=== PATIENT | male | born 1930 | race Caucasian/White ===

== ENCOUNTER → 2017-02-16 | Outpatient (CLI) | payer MEDICARE, BC ==
[~2017-02-16] MED LIST: ASPIRIN81 M2 PO; BAYER ASPIRIN325 M1 PO; FERROUS GLUCON324 M1 PO; HYDROCHLOROTH12.5 M1 PO; LIPITOR PO; MICROZIDE12.5 M1 PO; PATIENT'S PHARMACY; PRINIVIL40 MG PO; VITAMIN B122500 MCG
[2017-02-16 12:47] LABS: HEMATOCRIT 39.4 % (38.0-50.0); MEAN CORPUSCULAR HEMOGLOBIN 30.3 PG (28-34); MEAN CORPUSCULAR HGB CONC 32.9 g/dL (30-36); MEAN PLATELET VOLUME 6.9 FL (6.5-11.5); RED BLOOD COUNT 4.28 X10e (3.90-5.60); RED CELL DISTRIBUTION WIDTH 13.8 % (11.0-15.5); WHITE BLOOD COUNT 7.6 X10e3 (4.0-10.5)
== END | disposition home or self-care (01) ==
LOC: CLAB 12:00
PROVIDERS: Physician Assistant
DX: L08.9 Local infection of the skin and subcutaneous tissue, unspecified (principal)
CPT/HCPCS: 36415; 85027; 85652; 86140; 87070; 87077; 87088; 87186; 87205

== ENCOUNTER → 2017-03-01 | Outpatient (CLI) | payer MEDICARE, BC ==
--- NOTE | ~2017-03-01 | CT107 ---
[facility] A Service of [facility] & [facility] RADIOLOGY TEXT RESULTS PATIENT: ERNESTINE BECERRIL LOCATION: [facility] : 32 UNIT #: [id number] AGE: [address]: Choco Mcfarlane MD SEX: M ORDER DR: [id number] [facility] [address] [facility]. [place], [place] [address] [id number] O MR#: [id number] Acc #: [id number] NAME: ERNESTINE BECERRIL : 1930 SEX: M STUDY DATE/TIME: 03/01/2017 15:28 UNIT: [facility] ROOM: STUDY DESCRIPTION: CT Pelvis Wo Cont Attending Physician: Choco Mcfarlane M.D. Referring Physician: Choco Mcfarlane M.D. Ordering Physician: Choco Mcfarlane M.D. Primary Care Physician: Primary Care Physician No MEDICAL IMAGING REPORT This report is preliminary unless electronic signature is present EXAM CT pelvis and hips without contrast - with metal reduction technique and coronal and sagittal reconstructions - attention left hip, 03/01/2017 HISTORY Order states left hip infection, evaluate fracture healing. No contrast. History sheet states left hip pain. Evaluate for fracture. Pain in left hip ever since surgery on 06/09/2016. Left hip injury 06/09/2016 with surgery on 06/10/2016. COMPARISON Left hip radiographs 06/09/2016 and 06/10/2016. FINDINGS Intramedullary nailing of a left intertrochanteric femur fracture has been performed. No hardware fracture is noted. The intertrochanteric fracture line is largely ununited with sclerotic borders. There is minimal bridging ossification of the greater trochanteric fracture fragment that is superiorly located. There is incomplete hypertrophic malunion of the lesser trochanteric fragment. The left hip demonstrates no sizeable effusion or evidence of femoral head avascular necrosis. In the lateral left hip subcutaneous space in the region of the apparent surgical scar is a 2.6 x 2.4 x 2.1 cm (craniocaudal x transverse x AP) centimeter rounded fluid collection which could reflect a sterile seroma or an infected abscess. There is slight indentation of the skin at the presumed surgical scar but no obvious open wound. There is no deep space fluid collection to suggest a deep abscess. The remainder of the bony pelvis shows no fracture or osseous lesion. [facility]. [facility] A Service of [facility] & [facility] RADIOLOGY TEXT RESULTS PATIENT: ERNESTINE BECERRIL LOCATION: [facility] : 32 UNIT #: [id number] AGE: [address]: Choco Mcfarlane MD SEX: M ORDER DR: There is atherosclerotic vascular calcification. Prostate is enlarged. There is no adenopathy. Diverticulosis is present. There is an incompletely included low density lower pole renal lesion measuring 2.4 x 2.1 cm (AP x transverse) craniocaudal extent is not included. 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 Nevertheless, noncontrast CT of the abdomen is recommended for full characterization. There is advanced lower lumbar degenerative disc disease at L5-S1 and L4-5. The right hip is unremarkable. IMPRESSION 1. Minimal bridging or healing of the intertrochanteric comminuted left femur fracture with the main intertrochanteric fracture line essentially non-healed with sclerotic margins. 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 2. No left hip sizable effusion or avascular necrosis. There is no definite evidence of septic arthritis or osteomyelitis. 3. 2.6 x 2.4 x 2.1 cm subcutaneous rounded fluid collection in the lateral subcutaneous space of the left hip deep to the apparent incision site. This could reflect an infected abscess or a seroma. 4. Prominent prostate enlargement. 5. Diverticulosis. 6. Vascular calcification. 7. Incompletely included left lower pole renal lesion suggestive of an angiomyolipoma. Noncontrast CT of the abdomen is recommended for further characterization. 8. The exam was made available for interpretation on 03/10/2017. See documentation on properties page. STAT * RESULT Dictated by... Mikala Jones M.D. THIS IS AN ELECTRONICALLY VERIFIED REPORT Mikala Jones M.D. at 03/10/2017 12:29 PM DORCAS/diaz TD: 03/10/2017 09:58 JOB #: [id number] [facility]. [facility] A Service of [facility] & [facility] RADIOLOGY TEXT RESULTS PATIENT: ERNESTINE BECERRIL LOCATION: [facility] : 32 UNIT #: [id number] AGE: [address]: Choco Mcfarlane MD SEX: M ORDER DR: MEDICAL IMAGING REPORT Page 1 of 1 COPY
== END | disposition home or self-care (01) ==
LOC: CCAT 15:00
DX: M00.9 Pyogenic arthritis, unspecified (principal); S72.112K Displaced fracture of greater trochanter of left femur, subsequent encounter for closed fracture with nonunion; S72.122 Displaced fracture of lesser trochanter of left femur; S72.142K Displaced intertrochanteric fracture of left femur, subsequent encounter for closed fracture with nonunion; N40.0 Benign prostatic hyperplasia without lower urinary tract symptoms; K57.90 Diverticulosis of intestine, part unspecified, without perforation or abscess without bleeding; I99.8 Other disorder of circulatory system; N28.89 Other specified disorders of kidney and ureter
CPT/HCPCS: 72192

== ENCOUNTER 2017-03-16 13:42 | Inpatient (IN) | payer MEDICARE, BC ==
--- NOTE | ~2017-03-16 | HP ---
Unit #: [id number] #: [id number] Patient: ERNESTINE BECERRIL [id number] [address] [address] [id number] I MR#: [id number] NAME: ERNESTINE BECERRIL ROOM: 242 Age: 86 Sex: M Admission Date: 03/16/2017 : 1930 Attending Physician: Magdaleno Samson M.D. Primary Care Physician: Maris Mohan A.P.R.N. HISTORY AND PHYSICAL HISTORY OF PRESENT ILLNESS Mr. Becerril is an 86-year-old male who presents today with a nonunion left intertrochanteric hip fracture with drainage. The patient was seen at our office as an outpatient for a wound check and x-rays. He was direct admitted for left hip infection. The patient has a history of a left hip gamma nail done by Dr. Skelton on 06/10/2016. He had some increased drainage and then underwent an I and D about a week later. The patient reports drainage off and on from that incision site. He reports pain with weightbearing. He denies any recent injury that he can recall. No numbness or instability. PAST MEDICAL HISTORY 1. Left hip fracture. 2. Chronic kidney disease. 3. Restless leg syndrome. 4. DJD. 5. Staph infection. MEDICATIONS Medications include an iron tablet. ALLERGIES No known drug allergies. SURGICAL HISTORY 1. Left hip gamma nail. 2. Left hip gamma nail I and D. SOCIAL HISTORY Patient lives at home and alone. He is a former smoker. He occasionally drinks alcohol. FAMILY HISTORY Family history is insignificant. REVIEW OF SYSTEMS Ten organ systems reviewed. The patient denies any blurry vision, congestion, shortness of breath, chest pain, abdominal pain, urinary incontinence, numbness, tingling, skin ulcers or lesions, anxiety, depression. Positive for joint pain. PHYSICAL EXAMINATION GENERAL: No acute distress. Alert and oriented x3. VITALS: Temp 98.2, pulse 76, respirations 18, blood pressure 143/90. Unit #: [id number] #: [id number] Patient: ERNESTINE BECERRIL HEENT: PERRLA. Nonicteric sclera. THORAX: Trachea midline. No thyromegaly. CARDIAC: S1, S2. No extra sounds. No murmurs. LUNGS: Clear to auscultation. No rales or rhonchi. ABDOMEN: Nondistended, nontender. Positive bowel sounds. : Deferred. MUSCULOSKELETAL: Positive serous drainage coming from the incision in the left hip. Range of motion is limited in flexion. Tenderness to palpation. NEUROLOGIC: Cranial nerves II-XII intact. SKIN: Cool and dry. PSYCHIATRIC: Good insight. Good judgment. Mood and affect are pleasant. DIAGNOSTIC STUDIES LABS ON ADMISSION: White count 8.7, hemoglobin 13.4, hematocrit 40.4, platelets 274. Glucose 112, BUN 32, creatinine 1.4, sodium 138, potassium 3.9, chloride 101, bicarb 30. CRP is 5.6, and sed rate is 52. X-RAYS: Two views of the left hip ordered and reviewed and shows a nonunion left intertrochanteric hip fracture. ASSESSMENT 1. Left intertrochanteric nonunion hip fracture. 2. Left hip infection. PLAN I have discussed treatment options with the patient and have recommended a left hip IM nail removal with antibiotic spacer placed by Dr. Samson. The risks and benefits of the procedure were explained, as well as the description of the procedure in its entirety, along with any complications. The patient has decided to proceed. Will go ahead and get this scheduled. Will consult ID and HIPS for infection and medical management and follow him throughout his hospital course. Dictated by Xavier Michelle for Carin Silva/monika TD: 03/17/2017 13:31 JOB #: [id number] HISTORY AND PHYSICAL Page 1 of 1 X Gissell Vitale HISTORY AND PHYSICAL
--- NOTE | ~2017-03-16 | XA166 ---
[facility] A Service of [facility] RADIOLOGY TEXT RESULTS PATIENT: ERNESTINE BECERRIL LOCATION: [facility] 472- : 32 UNIT #: [id number] AGE: [address]: Magdaleno Samson MD SEX: M ORDER DR: [id number] [place] [id number] [facility]. [place], [place] [address] [id number] I MR#: [id number] Acc #: [id number] NAME: ERNESTINE BECERRIL : 1930 SEX: M STUDY DATE/TIME: 03/22/2017 9:14 UNIT: [facility] ROOM: [facility] STUDY DESCRIPTION: XA PICC Line Placement WO Port Attending Physician: Magdaleno Samson M.D. Ordering Physician: Magdlaeno Samson M.D. Primary Care Physician: Maris Mohan A.P.R.N. MEDICAL IMAGING REPORT This report is preliminary unless electronic signature is present EXAM Right-sided PICC line placement INDICATION Need for IV access. Patient underwent left hip arthroplasty on March 21, 2017. FINDINGS PRE-PROCEDURE The procedure was explained to the patient and/or patient business development representative including risks, benefits, potential complications and potential for alternative forms of treatment. Informed consent was obtained, and prior to initiating the procedure a formal timeout procedure was performed. PROCEDURE Using full standard sterile barrier technique, including caps, gowns, gloves, masks, as well as sterile skin preparation and standard sterile draping, the right arm was prepped and draped in the usual fashion, and real-time sterile ultrasound guidance was used to localize an arm vein and to confirm vessel patency. A hard copy ultrasound image was recorded. After local anesthesia with 1% Xylocaine, the vein was punctured using real-time sterile ultrasound guidance, and an 0.018 guidewire was advanced into the superior vena cava, using fluoroscopic guidance. A 4 Malagasy single-lumen PICC was then measured and deployed with the tip positioned in the superior vena cava. The position of the line was documented with a radiographic image. The line was secured in place with an adhesive dressing and an antibiotic patch was applied. Total fluoro time was 0.3 minutes. A single fluoroscopic image was obtained. IMPRESSION Successful placement of a 4 Malagasy single lumen PowerPICC via the right arm under ultrasound and fluoroscopic guidance. The tip of the PICC is in STS. [facility] A Service of [facility] RADIOLOGY TEXT RESULTS PATIENT: ERNESTINE BECERRIL LOCATION: [facility] 472-01 : 32 UNIT #: [id number] AGE: [address]: Magdaleno Samson MD SEX: M ORDER DR: good position in the superior vena cava. Dictated by... Vicky Sandra M.D. THIS IS AN ELECTRONICALLY VERIFIED REPORT Vicky Sandra M.D. at 03/25/2017 3:25 PM LYNDSAY/diaz TD: 03/25/2017 08:06 JOB #: [id number] MEDICAL IMAGING REPORT Page 1 of 1 COPY
--- NOTE | ~2017-03-16 | DS ---
Unit #: [id number] #: [id number] Patient: ERNESTINE BECERRIL [id number] [facility] [address] [facility]. [place], [place] [address] [id number] I MR#: [id number] NAME: ERNESTINE BECERRIL ROOM: 472 Age: 86 Sex: M Admission Date: 03/16/2017 : 1930 Discharge Date: 03/23/2017 Attending Physician: Magdaleno Samson M.D. Primary Care Physician: Maris Mohan A.P.R.N. 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 PROCEDURES Removal of gamma nail and antibiotic spacer to this left hip. HOSPITAL COURSE The patient was admitted to [facility] with consistent and chronic drainage from his left hip. The patient did undergo a gamma nail in the past by Dr. Skelton. The patient continued to have a nonunion, most likely because of infection. Ultimately, we took him to the operating room, removed the gamma nail and applied an antibiotic spacer to his left hip. The patient tolerated the procedure well, there were no complications. Today, he is feeling pretty well. His temperature is 98.8, blood pressure 133/69, heart rate 88 and regular, respirations 17. His incision is healing well, his neurovascular exam is intact. He had 2+ pulses in his lower extremities. DISPOSITION To Signature on the third floor. MEDICATIONS Per Med Rec list. He will be on vancomycin for at least six weeks. I will have ID advise before the patient goes to be sure that is all they want him on. We are also going to switch him over to Coumadin. Then, he will be on all of his regular home medicines. DIAGNOSTIC STUDIES LABORATORY: WBC 10.4, hemoglobin 9.4. FOLLOWUP INSTRUCTIONS The patient will be transferred to rehab. He will need six weeks of IV antibiotics. The patient will be 50% weight bearing on his left lower extremity. The patient will get Lovenox until his INR is greater than or equal to 2.0. Will go ahead and give him 7.5 mg today as a first dose. We will see him in follow up in the office in four to six weeks. The patient's skin ricardo should be removed in two weeks, then Steri-Strips placed for one week. No showers until after ricardo are removed. The patient will wear KATE hose during the day and off at night. Unit #: [id number] #: [id number] Patient: ERNESTINE BECERRIL Dictated by... Gian Perez P.A.-C- for Carin Silva/dick TD: 03/23/2017 09:17 JOB #: [id number] DISCHARGE SUMMARY Page 1 of 1 X X DISCHARGE SUMMARY
--- NOTE | ~2017-03-16 | CO ---
Unit #: [id number] #: [id number] Patient: ERNESTINE BECERRIL [id number] [address] [address] [id number] I MR#: [id number] NAME: ERNESTINE BECERRIL ROOM: 472 Age: 86 Sex: M Admission Date: 03/16/2017 : 1930 Attending Physician: Magdaleno Samson M.D. Primary Care Physician: Maris Mohan A.P.R.N. CONSULTATION REPORT REASON FOR CONSULTATION Medical management. HISTORY OF PRESENT ILLNESS The patient is an 85-year-old male with a history of left hip fracture, status post intramedullary nailing on 06/10/2016, being admitted for prosthetic joint infection. The patient is awaiting revision of the hip joint and Medicine has been called for further medical management. The patient denies any fever, chills, nausea, or vomiting. The patient's wound is draining the serosanguineous fluid and drainage from the wound. The patient denies any fall. PAST MEDICAL HISTORY History of hypertension, chronic cardiovascular disease, hyperlipidemia, restless legs syndrome, DJD. PAST SURGICAL HISTORY History of a left hip repair. SOCIAL HISTORY The patient lives alone. He stopped smoking in . Seldom drinks alcohol. FAMILY HISTORY Negative for coronary artery disease. ALLERGIES To sulfa. HOME MEDICATIONS He is on hydrochlorothiazide, ferrous gluconate, aspirin. REVIEW OF SYSTEMS 14-point review of systems was performed and only pertinent positive findings as described above, remaining are negative. PHYSICAL EXAMINATION GENERAL: The patient is lying on bed, not in acute distress. VITAL SIGNS: Temperature 98.1, pulse 97, respirations 16, blood pressure 153/104, saturating 100% on room air. HEENT: Head, atraumatic, normocephalic. Pupils equal, round, reactive to light and accommodation. Extraocular movements are intact. NECK: Supple. LUNGS: Clear to auscultation. Unit #: [id number] #: [id number] Patient: ERNESTINE BECERRIL HEART: Regular rate and rhythm. ABDOMEN: Soft. Positive bowel sounds. EXTREMITIES: The patient has an open wound from the left hip. At the site of surgery with a serosanguineous purulent drainage. NEUROLOGIC: Alert, awake, oriented. No gross focal motor deficit. DIAGNOSTIC STUDIES LABORATORY RESULTS: WBC 8.7, hemoglobin 13.4, hematocrit 40.4, platelets 274. Sodium 138, potassium 3.9, chloride 101, bicarb 30, glucose 112, BUN 32, creatinine 1.4, calcium 9.3. AST 13, ALT 10, alkaline phosphatase 96. C-reactive protein 5.6. Sedimentation is 52. IMAGING STUDIES: Left hip x-ray shows status post compression screw fixation of the patient's intertrochanteric fracture. Lucency along the femoral prosthesis infection. ASSESSMENT 1. Prosthetic joint infection. 2. Hypertension. 3. Hyperlipidemia. PLAN To check the x-ray and EKG for the preop clearance and hold the hydrochlorothiazide and aspirin and the patient is medically cleared for the surgery and we will follow with further recommendations. Dictated by... Carin Betancourt/jonathon TD: 03/16/2017 22:34 JOB #: [id number] CONSULTATION REPORT Page 1 of 1 X PANCHO NANCE MD X CONSULTATION REPORT
--- NOTE | ~2017-03-16 | EKG ---
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
--- NOTE | ~2017-03-16 | CR144 ---
[facility] A Service of [facility] & [facility] RADIOLOGY TEXT RESULTS PATIENT: ERNESTINE BECERRIL LOCATION: [place] [address] : 32 UNIT #: [id number] AGE: [address]: Magdaleno Samson MD SEX: M ORDER DR: [id number] [facility] [address] [facility]. [place], [place] [address] [id number] I MR#: [id number] Acc #: [id number] NAME: ERNESTINE BECERRIL : 1930 SEX: M STUDY DATE/TIME: 03/21/2017 17:50 UNIT: [facility] ROOM: [facility] STUDY DESCRIPTION: CR Hip 1 View Lt Attending Physician: Magdaleno Samson M.D. Ordering Physician: Magdaleno Samson M.D. Primary Care Physician: Maris Mohna A.P.R.N. MEDICAL IMAGING REPORT This report is preliminary unless electronic signature is present EXAM Single view of the left hip. INDICATIONS Postop left hip replacement. FINDINGS On this single image of the left hip, left hip arthroplasty appears to be project in expected position. Soft tissue swelling is seen overlying the left lateral thigh as a subcutaneous gas. Surgical drain is noted within the operative bed. Dictated by... Vicky Sandra M.D. THIS IS AN ELECTRONICALLY VERIFIED REPORT Vicky Sandra M.D. at 03/22/2017 12:55 PM AFF/bd TD: 03/22/2017 08:41 JOB #: [id number] MEDICAL IMAGING REPORT Page 1 of 1 COPY
--- NOTE | ~2017-03-16 | OR ---
Unit #: [id number] #: [id number] Patient: ERNESTINE BECERRIL [id number] [place] [address] [facility] [place] [facility]. [place], [place] [address] [id number] I MR#: [id number] NAME: ERNESTINE BECERRIL ROOM: 472 Date of Procedure: 03/21/2017 Admission Date: 03/16/2017 Surgeon: Magdaleno Samson M.D. : 1930 Attending Physician: Magdaleno Samson M.D. Primary Care Physician: Maris Mohan A.P.R.N. 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 PROCEDURE PERFORMED Removal of infected gamma nail and neck and head fragment with placement of antibiotic spacer. ASSISTANTS Ana and Suleman. ANESTHESIA General. ESTIMATED BLOOD LOSS About 750. OPERATIVE INDICATION This is an 86-year-old gentleman, who had a previous left hip fracture treated by Dr. Skelton with a gamma nail. He was subsequently developed a postop infection, went onto nonunion, continues to drain from his hip. His cultures were growing out MRSA and he is brought to the hospital today to have the gamma nail removed and a spacer position. DESCRIPTION OF PROCEDURE The patient was already on scheduled IV antibiotics of vancomycin. He was brought back to the operating room and given a general anesthetic and placed in decubitus position with the left side up. The left hip was prepped and draped in sterile fashion. After this was done, we then made incision over the distal locking screw which had a draining area. The locking screw was identified and removed. We then made an incision through the old incision proximally and we were able to identify the lag screw which was protruding laterally. We eventually identified the top of the gamma nail, removed the locking screw. We then backed out the lag screw and then the gamma nail was removed. Posterior approach was carried out to the hip. The hip was dislocated and then the nonunion was identified. We then made a cut using a saw through the area of nonunion, removed the head and neck fragment. A starter reamer passed down the Unit #: [id number] #: [id number] Patient: ERNESTINE BECERRIL canal and then the broaches were used up to a size 2 for the spacer events administrative assistant from [employer]. After this was done, an x-ray was obtained which showed that the broach for the spacer was in the appropriate position. We then irrigated the wound with Betadine. The PROSTALAC spacer was made on the back table. After this was done, it was impacted into the femur. The acetabulum has been measured at a 52, so we then opened a 52 Endo head with a 0 neck extension and after it was done, the hip was reduced and found to be stable. The wound was irrigated once again with Betadine and bacitracin and then the capsule was repaired with 0 Vicryl. The drain was positioned. The fascia was closed with 0 Vicryl, the subcutaneous was closed with 0 and 2-0 Vicryl, ricardo in the skin. Sterile dressing applied. Abduction pillow positioned and the patient had general anesthetic reversed. power plant assistant, Gian Perez, was present throughout the entire case. Dictated by... Carin Silva/jonathon TD: 03/22/2017 04:08 JOB #: [id number] OPERATIVE REPORT Page 1 of 1 X Magdaleno Samson MD PROCEDURE OPERATIVE NOTE
--- NOTE | ~2017-03-16 | CR63 ---
[facility] A Service of [facility] & [facility] RADIOLOGY TEXT RESULTS PATIENT: ERNESTINE BECERRIL LOCATION: [facility] 242-01 : 32 UNIT #: [id number] AGE: [address]: Magdaleno Samson MD SEX: M ORDER DR: [id number] [facility] [address] [facility]. [place], [place] [address] [id number] I MR#: [id number] Acc #: [id number] NAME: ERNESTINE BECERRIL : 1930 SEX: M STUDY DATE/TIME: 03/16/2017 21:19 UNIT: [facility] ROOM: 242 STUDY DESCRIPTION: CR Chest 2 View Attending Physician: Magdaleno Samson M.D. Ordering Physician: Magdaleno Samson M.D. Primary Care Physician: Maris Mohan A.P.R.N. MEDICAL IMAGING REPORT This report is preliminary unless electronic signature is present EXAM Two-view chest INDICATIONS Preop evaluation for left hip surgery. Observation for pulmonary status. FINDINGS Single portable PA and lateral views of the chest compared to 06/09/2016. Heart mediastinal contours are unchanged. There is a small hiatal hernia. There is background COPD. No focal consolidation. No pneumothorax. Blunting of costophrenic angles is probably due to pleural scarring. IMPRESSION 1. No acute findings. 2. Emphysema. Dictated by... Simone Grossman M.D. THIS IS AN ELECTRONICALLY VERIFIED REPORT Simone Grossman M.D. at 03/17/2017 1:18 PM KEM/qian TD: 03/16/2017 22:16 JOB #: [id number] MEDICAL IMAGING REPORT Page 1 of 1 COPY
--- NOTE | ~2017-03-16 | CR144 ---
[facility] A Service of [facility] & [facility] RADIOLOGY TEXT RESULTS PATIENT: ERNESTINE BECERRIL LOCATION: [place] [address]- : 32 UNIT #: [id number] AGE: [address]: Magdaleno Samson MD SEX: M ORDER DR: [id number] [place] [id number] [facility]. [place], [place] [address] [id number] MR#: [id number] Acc #: [id number] NAME: ERNESTINE BECERRIL : 1930 SEX: M STUDY DATE/TIME: 03/21/2017 14:58 UNIT: [facility] ROOM: [facility] STUDY DESCRIPTION: CR Hip 1 View Lt Attending Physician: Magdaleno Samson M.D. Ordering Physician: Magdaleno Samson M.D. Primary Care Physician: Maris Mohan A.P.R.N. MEDICAL IMAGING REPORT This report is preliminary unless electronic signature is present EXAM Left hip HISTORY 86-year-old male left hip pain, onset today. FINDINGS Single apparent cross-table lateral view of the left hip and pelvis was submitted. There has been resection of the left femoral head and removal of the patient's ORIF instrumentation with a base of the femoral component of a left hip arthroplasty. Towel clip noted overlying the surgical site. IMPRESSION Single lateral intraoperative radiograph from apparent left total hip arthroplasty procedure with apparent removal of the patient's instrumentation from a previous ORIF of a intertrochanteric fracture. The portion of the femoral component is noted in expected position, but the femoral head or acetabular component have not been placed at this point. Lucency noted about the hip joint probably related to soft tissue gas related to the surgical procedure. Dictated by... Kyler Roca M.D. THIS IS AN ELECTRONICALLY VERIFIED REPORT Kyler Roca M.D. at 03/22/2017 3:08 PM LUDY/kalina TD: 03/22/2017 04:20 JOB #: [id number] MEDICAL IMAGING REPORT [facility] A Service of [facility] & [facility] RADIOLOGY TEXT RESULTS PATIENT: ERNESTINE BECERRIL LOCATION: [facility] [id number] : 32 UNIT #: [id number] AGE: [address]: Magdaleno Samson MD SEX: M ORDER DR: Page 1 of 1 COPY
--- NOTE | ~2017-03-16 | EKG ---
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
--- NOTE | ~2017-03-16 | CR150 ---
[facility] A Service of [facility] RADIOLOGY TEXT RESULTS PATIENT: ERNESTINE BECERRIL LOCATION: [facility] [address] : 32 UNIT #: [id number] AGE: [address]: Magdaleno Samson MD SEX: M ORDER DR: [id number] [facility] [address] [facility]. [place], [place] [address] [id number] MR#: [id number] Acc #: [id number] NAME: ERNESTINE BECERRIL : 1930 SEX: M STUDY DATE/TIME: 03/16/2017 15:50 UNIT: [facility] ROOM: STUDY DESCRIPTION: CR Hip Min 2 Views Lt Attending Physician: Alejandro Quintero D.O. Ordering Physician: Jose Guadalupe Muir M.D. Primary Care Physician: Maris Mohan A.P.R.N. MEDICAL IMAGING REPORT This report is preliminary unless electronic signature is present EXAM AP pelvis and left hip. HISTORY Pain and possible infection. Surgery in July 2016. TECHNIQUE An AP view of the pelvis and AP and oblique views of the left hip were obtained. FINDINGS The examination shows a compression screw transfixing an intertrochanteric fracture of the left hip. There is lucency identified around the compression screw and around the intramedullary ramon. This may well represent loosening or infection. CONCLUSION Status post compression screw fixation of the patient's intertrochanteric fracture. Lucency along the femoral prosthesis as well as the compression screw suggesting loosening or infection. Dictated by... Ernestine Ferrell M.D. THIS IS AN ELECTRONICALLY VERIFIED REPORT Ernestine Ferrell M.D. at 03/17/2017 7:14 AM ARCELIA/dillan TD: 03/16/2017 16:41 JOB #: [id number] MEDICAL IMAGING REPORT [facility] A Service of [facility] RADIOLOGY TEXT RESULTS PATIENT: ERNESTINE BECERRIL LOCATION: [facility] 242 : 32 UNIT #: [id number] AGE: [address]: Magdaleno Samson MD SEX: M ORDER DR: Page 1 of 1 COPY
--- NOTE | ~2017-03-16 | CO ---
Unit #: [id number] #: [id number] Patient: ERNESTINE BECERRIL [id number] [address] [place], [place] [address] [id number] I MR#: [id number] NAME: ERNESTINE BECERRIL ROOM: 472 Age: 86 Sex: M Admission Date: 03/16/2017 : 1930 Attending Physician: Magdaleno Samson M.D. Primary Care Physician: Maris Mohan A.P.R.N. Consultation Date: 03/17/2017 CONSULTATION REPORT REASON FOR CONSULTATION Infected left hip. HISTORY OF PRESENT ILLNESS Mr. Becerril is an 86 years old gentleman, who was admitted, treated with pain and drainage from the left hip. He apparently had a hip fracture in 06/2016, treated with intramedullary nail. This was complicated by hematoma, which was drained. At that time, cultures grew MRSA. The patient was discharged on oral Zyvox for 2 weeks. However, since then, the patient has been having intermittent drainage and progressive pain in the left hip to the point that he is very difficult to walk without any support. He has intermittent drainage as well from the left hip. 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 He is currently on vancomycin, based on his previous culture for MRSA and ID was consulted for further evaluation. The patient does not have any fever, but does have pain on weight bearing. There are no fever, hypotension, or signs of systemic sepsis. PAST MEDICAL HISTORY Left hip fracture, treated with left hip gamma nail, followed by bib, I and D. He also has a history of chronic kidney disease, restless legs syndrome, DJD, and MRSA infection of the left hip. CURRENT MEDICATIONS Vancomycin, Lovenox, and ferrous sulfate. ALLERGIES None. SOCIAL HISTORY He lives at home. No history of alcohol, drug, or tobacco abuse. FAMILY HISTORY Negative. SYSTEMIC REVIEW Left knee pain which is progressive with an intermittent drainage. No fever or chills. He has no cough, abdominal pain, headache, nausea, vomiting, diarrhea, dysuria, frequency, urgency, hematuria, etc. PHYSICAL EXAMINATION GENERAL: Reveals an elderly white male, who is awake and alert, in no acute distress. Unit #: [id number] #: [id number] Patient: ERNESTINE BECERRIL VITAL SIGNS: Stable; temperature 98, pulse 80, respirations 20, and blood pressure 150/90. HEENT: Unremarkable. NECK: Supple. There is no JVD or edema. LUNGS: Clear to percussion and auscultation. HEART: Sounds normal. There are no murmurs. ABDOMEN: Soft and nontender without organomegaly or ascites. Bowel sounds normal. NEUROLOGIC: Nonfocal. MUSCULOSKELETAL: Examination of left hip reveals 2 openings in left hip proximally and distally with seropurulent discharge. There is no cellulitis. Most of the incision has healed other than 2 openings. There is no obvious cellulitis or abscess by clinical exam. The area is tender. DIAGNOSTIC STUDIES LABORATORY RESULTS: White count is 8.7, hemoglobin 13.4, and platelets 274. BUN is 32, creatinine 1.4. Electrolytes normal. Liver function tests are within normal limits. CRP is 5, sedimentation rate is 52. Blood cultures are negative. Previous cultures in 06/2016 have shown MRSA in the surgical site. IMAGING STUDIES: X-ray of the left hip shows compression screw fixation of the patient's intertrochanteric fracture lucency along the femoral prosthesis as well as compression screw suggesting loosening or infection. Chest x-ray is clear. 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 RECOMMENDATIONS We will continue vancomycin. I will strongly recommend surgical intervention or debridement, intraoperative cultures, and possible removal of hardware. Further recommendation will follow. Dictated by... Carin Weiss/jonathon TD: 03/19/2017 00:03 JOB #: [id number] CONSULTATION REPORT Page 1 of 1 X Roberto Mackenzie MD CONSULTATION REPORT
[~2017-03-16 13:42] MED LIST changes: -ASPIRIN81 M2 PO; -FERROUS GLUCON324 M1 PO; -MICROZIDE12.5 M1 PO; -PATIENT'S PHARMACY; -VITAMIN B122500 MCG
[2017-03-16 14:56] LABS: BASOPHIL# 0.1 X10e3 (0-0.3); BASOPHIL% 0.6 % (0-2.5); EOSINOPHIL# 0.2 X10e3 (0-0.7); HEMATOCRIT 40.4 % (38.0-50.0); HEMOGLOBIN 13.4 gm/dL (13.0-16.0); LYMPHOCYTE# 1.6 X10e3 (1.0-3.5); LYMPHOCYTE% 18.1 % (17.0-45.0); MEAN CELL VOLUME 92.3 FL (83-96); MEAN CORPUSCULAR HEMOGLOBIN 30.6 PG (28-34); MEAN CORPUSCULAR HGB CONC 33.1 g/dL (30-36); MEAN PLATELET VOLUME 7.3 FL (6.5-11.5); MONOCYTE# 0.9 X10e3 (0-1.0); MONOCYTE% 9.9 % (3.0-12.0); NEUTROPHIL% 69.4 % (40-75); PLATELET COUNT 274 X10e3 (140-420); RED BLOOD COUNT 4.38 X10e (3.90-5.60); RED CELL DISTRIBUTION WIDTH 13.7 % (11.0-15.5); WHITE BLOOD COUNT 8.7 X10e3 (4.0-10.5)
[2017-03-16 14:59] LABS: DIFF IND NO
[2017-03-16 15:20] LABS: ALBUMIN SERUM 4.2 g/dL (3.5-5.0); BUN/CREATININE RATIO 22.85; CALCIUM SERUM 9.3 mg/dL (8.4-10.2); CREATININE SERUM 1.4 mg/dL (0.6-1.4); GLOM FILT RATE Estimated 45.8 mL/min (>60); POTASSIUM 3.9 mmol/L (3.5-5.1); PROTEIN TOTAL SERUM 7.9 g/dL (6.0-8.3)
[2017-03-16] MEDS ORDERED: MICROZIDE12.5 M1 PO (17:03)
[2017-03-16] MEDS ORDERED: FERROUS GLUCON324 M1 PO (17:03)
[2017-03-16] MEDS ORDERED: ASPIRIN81 M2 PO (17:03)
[2017-03-16] MEDS ORDERED: PATIENT'S PHARMACY (17:04)
[2017-03-18 02:22] LABS: HEMATOCRIT 39.3 % (38.0-50.0); MEAN CORPUSCULAR HEMOGLOBIN 30.1 PG (28-34); MEAN CORPUSCULAR HGB CONC 33.1 g/dL (30-36); MEAN PLATELET VOLUME 6.6 FL (6.5-11.5); RED BLOOD COUNT 4.32 X10e (3.90-5.60); RED CELL DISTRIBUTION WIDTH 13.3 % (11.0-15.5); WHITE BLOOD COUNT 7.3 X10e3 (4.0-10.5)
[2017-03-18 02:58] LABS: ALBUMIN SERUM 3.5 g/dL (3.5-5.0); BILIRUBIN,TOTAL 1.4 mg/dL (0.2-2.0); BUN/CREATININE RATIO 18.18; CALCIUM SERUM 8.9 mg/dL (8.4-10.2); CREATININE SERUM 1.1 mg/dL (0.6-1.4); GLOM FILT RATE Estimated 61.3 mL/min (>60); MAGNESIUM 1.9 mg/dL (1.6-3.0); POTASSIUM 3.8 mmol/L (3.5-5.1); PROTEIN TOTAL SERUM 6.6 g/dL (6.0-8.3)
[2017-03-19 03:03] LABS: HEMATOCRIT 38.2 % (38.0-50.0); HEMOGLOBIN 12.8 gm/dL (13.0-16.0); MEAN CELL VOLUME 90.9 FL (83-96); MEAN CORPUSCULAR HEMOGLOBIN 30.5 PG (28-34); MEAN CORPUSCULAR HGB CONC 33.5 g/dL (30-36); MEAN PLATELET VOLUME 7.1 FL (6.5-11.5); RED BLOOD COUNT 4.2 X10e (3.90-5.60); RED CELL DISTRIBUTION WIDTH 13.3 % (11.0-15.5); WHITE BLOOD COUNT 7.3 X10e3 (4.0-10.5)
[2017-03-19 03:36] LABS: BUN/CREATININE RATIO 17.5; CALCIUM SERUM 8.5 mg/dL (8.4-10.2); CREATININE SERUM 1.2 mg/dL (0.6-1.4); GLOM FILT RATE Estimated 55.2 mL/min (>60); POTASSIUM 3.8 mmol/L (3.5-5.1)
[2017-03-20 03:36] LABS: HEMATOCRIT 38.7 % (38.0-50.0); HEMOGLOBIN 12.7 gm/dL (13.0-16.0); MEAN CORPUSCULAR HEMOGLOBIN 30.1 PG (28-34); MEAN CORPUSCULAR HGB CONC 32.7 g/dL (30-36); MEAN PLATELET VOLUME 7.3 FL (6.5-11.5); RED BLOOD COUNT 4.21 X10e (3.90-5.60); RED CELL DISTRIBUTION WIDTH 13.1 % (11.0-15.5); WHITE BLOOD COUNT 7.1 X10e3 (4.0-10.5)
[2017-03-20 03:55] LABS: BUN/CREATININE RATIO 18.33; CALCIUM SERUM 8.4 mg/dL (8.4-10.2); CREATININE SERUM 1.2 mg/dL (0.6-1.4); GLOM FILT RATE Estimated 55.2 mL/min (>60); POTASSIUM 3.9 mmol/L (3.5-5.1)
[2017-03-21 04:09] LABS: HEMATOCRIT 37.1 % (38.0-50.0); HEMOGLOBIN 12.1 gm/dL (13.0-16.0); MEAN CELL VOLUME 93.1 FL (83-96); MEAN CORPUSCULAR HEMOGLOBIN 30.3 PG (28-34); MEAN CORPUSCULAR HGB CONC 32.5 g/dL (30-36); RED BLOOD COUNT 3.99 X10e (3.90-5.60); RED CELL DISTRIBUTION WIDTH 13.4 % (11.0-15.5); WHITE BLOOD COUNT 6.7 X10e3 (4.0-10.5)
[2017-03-21 04:56] LABS: CALCIUM SERUM 8.5 mg/dL (8.4-10.2); GLOM FILT RATE Estimated 68.8 mL/min (>60); POTASSIUM 4.1 mmol/L (3.5-5.1)
[2017-03-22 03:38] LABS: BASOPHIL# 0.1 X10e3 (0-0.3); BASOPHIL% 0.7 % (0-2.5); EOSINOPHIL% 0.2 % (0.0-7.0); HEMATOCRIT 32.7 % (38.0-50.0); LYMPHOCYTE# 1.3 X10e3 (1.0-3.5); LYMPHOCYTE% 12.8 % (17.0-45.0); MEAN CELL VOLUME 91.1 FL (83-96); MEAN CORPUSCULAR HEMOGLOBIN 30.8 PG (28-34); MEAN CORPUSCULAR HGB CONC 33.8 g/dL (30-36); MEAN PLATELET VOLUME 7.1 FL (6.5-11.5); MONOCYTE# 0.9 X10e3 (0-1.0); MONOCYTE% 8.9 % (3.0-12.0); NEUTROPHIL# 7.6 X10e3 (1.5-7.1); NEUTROPHIL% 77.4 % (40-75); PLATELET COUNT 261 X10e3 (140-420); RED BLOOD COUNT 3.59 X10e (3.90-5.60); RED CELL DISTRIBUTION WIDTH 13.2 % (11.0-15.5); WHITE BLOOD COUNT 9.8 X10e3 (4.0-10.5)
[2017-03-22 03:40] LABS: DIFF IND NO
[2017-03-22 04:16] LABS: CALCIUM SERUM 8.2 mg/dL (8.4-10.2); GLOM FILT RATE Estimated 68.8 mL/min (>60); MAGNESIUM 1.8 mg/dL (1.6-3.0); POTASSIUM 4.3 mmol/L (3.5-5.1)
[2017-03-23 04:19] LABS: BASOPHIL# 0.1 X10e3 (0-0.3); BASOPHIL% 0.6 % (0-2.5); EOSINOPHIL# 0.1 X10e3 (0-0.7); EOSINOPHIL% 1.1 % (0.0-7.0); HEMOGLOBIN 9.4 gm/dL (13.0-16.0); LYMPHOCYTE# 1.4 X10e3 (1.0-3.5); LYMPHOCYTE% 13.5 % (17.0-45.0); MEAN CELL VOLUME 91.7 FL (83-96); MEAN CORPUSCULAR HEMOGLOBIN 30.9 PG (28-34); MEAN CORPUSCULAR HGB CONC 33.7 g/dL (30-36); MEAN PLATELET VOLUME 7.1 FL (6.5-11.5); MONOCYTE# 1.2 X10e3 (0-1.0); MONOCYTE% 11.1 % (3.0-12.0); NEUTROPHIL# 7.7 X10e3 (1.5-7.1); NEUTROPHIL% 73.7 % (40-75); PLATELET COUNT 230 X10e3 (140-420); RED BLOOD COUNT 3.05 X10e (3.90-5.60); RED CELL DISTRIBUTION WIDTH 13.3 % (11.0-15.5); WHITE BLOOD COUNT 10.4 X10e3 (4.0-10.5)
[2017-03-23 04:20] LABS: DIFF IND NO
[2017-03-23 04:44] LABS: BUN/CREATININE RATIO 16.42; CALCIUM SERUM 7.7 mg/dL (8.4-10.2); CREATININE SERUM 1.4 mg/dL (0.6-1.4); GLOM FILT RATE Estimated 45.8 mL/min (>60); MAGNESIUM 1.7 mg/dL (1.6-3.0); POTASSIUM 3.9 mmol/L (3.5-5.1)
[2017-03-23 15:00] LABS: INR 1.1; PROTHROMBIN TIME (PATIENT) 11.4 SECONDS (10.0-11.7)
[2017-06-07] MEDS ORDERED: VITAMIN B122500 MCG (11:25)
== END 2017-03-23 17:41 | DRG 481 ==
LOC: CED 13:42 → CEDOF 16:45 → C4C 16:45 → CED 17:03 → CEDOF 17:03 → C2A 21:30 → CEDOF 21:30 → C4C 03-17 17:43 → C2A 03-17 17:43 → C4C 03-23 17:41
PROVIDERS: Family Medicine; Nurse Practitioner; Nurse Practitioner Family; Orthopaedic Surgery
PROC: 0SHB08Z Insertion of Spacer into Left Hip Joint, Open Approach (ICD-10-PCS; 2017-03-21)
PROC: 0Q870ZZ Division of Left Upper Femur, Open Approach (ICD-10-PCS; principal; 2017-03-21 14:00)
PROC: 0QP704Z Removal of Internal Fixation Device from Left Upper Femur, Open Approach (ICD-10-PCS; 2017-03-21 14:00)
PROC: 02HV33Z Insertion of Infusion Device into Superior Vena Cava, Percutaneous Approach (ICD-10-PCS; 2017-03-22)
PROC: B518YZA Fluoroscopy of Superior Vena Cava using Other Contrast, Guidance (ICD-10-PCS; 2017-03-22)
PROC: B548ZZA Ultrasonography of Superior Vena Cava, Guidance (ICD-10-PCS; 2017-03-22)
DX: T84.621A Infection and inflammatory reaction due to internal fixation device of left femur, initial encounter (principal); E44.0 Moderate protein-calorie malnutrition; N18.3 Chronic kidney disease, stage 3 (moderate); D62 Acute posthemorrhagic anemia; S72.91XK Unspecified fracture of right femur, subsequent encounter for closed fracture with nonunion; G25.81 Restless legs syndrome; Z87.891 Personal history of nicotine dependence
CPT/HCPCS: 36415; 71020; 73501; 73502; 76937; 77001; 80048; 80053; 80202; 83735; 85025; 85027; 85610; 85652; 86140; 87040; 87070; 87075; 87205; 88305; 88311; 93005; 94760; 97110; 97116; 97161; 97167; 97530; 97535; 99284; C1751; C1776; G8978-GP; G8979-GP; G8980-GP; G8987-GO; G8988-GO; G8989-GO; J0131; J0330; J0696; J0878; J1642; J1650; J2370; J2710; J3010; J3370

== ENCOUNTER → 2017-06-07 | Outpatient (CLI) | payer MEDICARE, BC ==
[~2017-06-07] MED LIST changes: +ASPIRIN81 M2 PO; +FERROUS GLUCON324 M1 PO; +MICROZIDE12.5 M1 PO; +PATIENT'S PHARMACY; +VITAMIN B122500 MCG
--- NOTE | ~2017-06-07 | CO ---
Unit #: [id number] #: [id number] Patient: ERNESTINE BECERRIL [id number] [address] [place], [place] [address] [id number] MR#: [id number] NAME: ERNESTINE BECERRIL ROOM: Age: 86 Sex: M Admission Date: 06/07/2017 : 1930 Attending Physician: Magdaleno Samson M.D. Primary Care Physician: Maris Mohan A.P.R.N. Consultation Date: 06/07/2017 CONSULTATION REPORT REASON FOR CONSULTATION Preoperative medical evaluation prior to right total knee arthroplasty scheduled by Dr. Samson for June 22, 2017. HISTORY OF PRESENT ILLNESS The patient is an 86-year-old male, who presents to preprocedural screening for the reasons indicated above. Other than complaints of bilateral knee aching continuously, he has no other complaints at this time. He has history of left hip MRSA infection and is status post removal of an infected gamma nail, neck and head fragment from the left hip with placement of antibiotic spacer on March 21, 2017. The patient states he completed several weeks of Cubicin. His PICC line has been discontinued. He has no fever, chills, erythema at the incision site. He has no upper chest, upper back, arm, neck, jaw pain or pressure. Minimum shortness of air with activity. No lightheadedness or dizziness. No palpitations. Per the patient's report, the antibiotic spacer in the left hip has fused and there are no plans for additional left hip procedures. Patient states he is weightbearing as tolerated on the left lower extremity with the use of a rolling walker to assist with ambulation. He has been evaluated by Dr. Samson and scheduled for the above referenced procedure. PAST MEDICAL HISTORY 1. Osteoarthritis. 2. Left hip MRSA infection, status post removal of infected gamma nail and neck and head fragment with placement of antibiotic spacer March 21, 2017, status post completion of several weeks of Cubicin antibiotic. 3. Anemia. 4. Chronic kidney disease stage 3, established with Dr. Villasenor. Patient tolerated his previous two hip surgeries well with creatinine baseline approximately 1.2 to 1.5. 5. Restless leg syndrome. 6. Degenerative joint disease. 7. History of remote tobacco use, he quit in the 1970s. 8. Hyperlipidemia. 9. GERD. 10. Emphysema. 11. Health maintenance: Patient was seen by his dentist and a letter of dental clearance has been sent by mail to Dr. Samson's office. PAST SURGICAL HISTORY 1. Left hip fracture and repair. 2. Prostate biopsy years ago. Unit #: [id number] #: [id number] Patient: ERNESTINE BECERRIL 3. Left hip hematoma, status post I and D in 2015. 4. Left hip hardware removed and placement of antibiotic space March 2017. Please note: This patient denies a personal and family history of complications to anesthesia. ALLERGIES Denies latex allergy. No known medication allergies. CURRENT MEDICATIONS 1. Hydrochlorothiazide 12.5 mg p.o. daily. 2. Ferrous gluconate 324 mg p.o. daily. 3. Aspirin 81 mg p.o. daily. 4. Vitamin B12 at 1000 mcg p.o. daily. SOCIAL HISTORY Former smoker. Denies ETOH and illicit drug use. FAMILY HISTORY Both parents at the age of 93. No family history of coronary artery disease per review of history and physical report June 2016. REVIEW OF SYSTEMS Patient reports abdominal cramping with minimal diarrhea yesterday which completely resolved. He denies fever, chills. A 10-point review of systems is otherwise conducted and negative except as indicated under history of present illness above. PHYSICAL EXAMINATION GENERAL: An 86-year-old male awake and alert in no acute distress. VITAL SIGNS: Temperature 97, heart rate 80, respiratory rate 18, blood pressure 144/87, oxygen saturation 97% on room air. HEENT: Atraumatic, normocephalic. Sclerae anicteric. No discharge from eyes, ears, or nares. LYMPH: No preauricular, postauricular, tonsillar, submental, anterior, posterior, cervical adenopathy. No thyromegaly, thyroid nodules, or tenderness. RESPIRATORY: Clear to auscultation in all bashir bilaterally without wheezes, rhonchi, or rales. CARDIOVASCULAR: S1, S2. Regular rate and rhythm without murmur or rub. GASTROINTESTINAL: Bowel sounds positive x4. Soft, nontender, nondistended. EXTREMITIES: No edema, cyanosis, or clubbing. MUSCULOSKELETAL: Strength 5/5 all extremities bilaterally to flexion and extension without tenderness or obvious atrophy. NEUROLOGIC: Alert and oriented x3. Speech clear. Cranial nerves II-XII grossly intact. Follows directions during examination. DIAGNOSTIC STUDIES LABORATORY: WBC 7.4, hemoglobin 12.3, hematocrit 36.9, platelet count 262,000. Sodium 140, potassium 4, chloride 103, CO2 of 30, glucose 93, BUN 32, creatinine 1.3, calcium 9.1. AST 14, ALT 10, alkaline phosphatase 94, bilirubin total 0.9, total protein 6.9, albumin 4.1. Urinalysis negative with neither microscopic nor culture indicated. PT 10.8, INR 1. Blood type O negative. Antibody screen negative. MRSA nasal swab report pending at this time. Unit #: [id number] #: [id number] Patient: ERNESTINE BECERRIL IMAGING: A two-view chest x-ray report, March 16, 2017: Impression - no acute findings, emphysema. CARDIOVASCULAR: March 17, 2017, normal sinus rhythm, left axis deviation, low-voltage QRS. Inferior infarct sited on or before June 09, 2016. Abnormal ECG. When compared with ECG of (1) , no significant change was found. IMPRESSION 1. The patient is an 86-year-old male who presents to preprocedural screening for preoperative medical evaluation prior to right total knee arthroplasty as scheduled by Dr. Samson. The patient's Logan Revised Cardiac Risk Index is equal to 1 to 1.3% and represents the patient's rate of fatal or nonfatal myocardial infarction, cardiopulmonary arrest, arrhythmia, and/or pulmonary edema based on the risk factor of chronic kidney disease. The patient has been evaluated by Dr. Villasenor, his dietitian consultant, and has been given preoperative clearance for surgery. Per Dr. Villasenor's recommendation, based on review of an addendum to his office note dated June 01, 2017, will hold any LYLY inhibitor and thiazide diuretics prior to surgery. Patient does not take NSAIDs at this time. Will monitor blood pressure and restart the patient's diuretic based on his renal function perioperatively. I will add a repeat BMP and magnesium for the a.m. of OR. 2. History of methicillin-resistant Staphylococcus aureus infection of the left hip, status post removal infected gamma nail and neck and head fragment with placement of antibiotic spacer on March 21, 2017. The patient will likely be placed in contact precautions. 3. Hypertension: Blood pressure is stable. Will hold hydrochlorothiazide preoperatively, monitor blood pressure and resume based on patient's renal function postoperatively. 4. History of anemia: The patient's hemoglobin and hematocrit are stable at this time. Will monitor hemoglobin and hematocrit postoperatively. 5. Chronic kidney disease 3: Please refer to #1 above. 6. Restless leg syndrome. 7. Degenerative joint disease. 8. Remote history of tobacco use. 9. Hyperlipidemia: Patient tells me he no longer takes the statin medication for this. 10. Gastroesophageal reflux disease. 11. Emphysema: The patient is stable today. Will monitor pulmonary function and add inhaled bronchodilators and mucolytics postoperatively if indicated. 12. Health maintenance: Patient's dentist has sent a letter of dental clearance via mail to Dr. Samson's office. Thank you for allowing us to participate in the care of this patient. Will gladly follow him for postop medical management pending order of Dr. Samson. Dictated by... Dede Harrison A.P.R.N. for Lloyd Obrien M.D. Unit #: [id number] #: [id number] Patient: ERNESTINE BECERRIL AMBAR/richelle TD: 06/08/2017 12:09 JOB #: [id number] CONSULTATION REPORT Page 1 of 1 X Dede Harrison APRN X CONSULTATION REPORT
--- NOTE | ~2017-06-07 | CO ---
Unit #: [id number] #: [id number] Patient: ERNESTINE BECERRIL [id number] [address] [place], [place] [address] [id number] MR#: [id number] NAME: ERNESTINE BECERRIL ROOM: Age: 86 Sex: M Admission Date: 06/07/2017 : 1930 Attending Physician: Magdaleno Samson M.D. Primary Care Physician: Maris Mohan A.P.R.N. Consultation Date: 06/07/2017 CONSULTATION REPORT REASON FOR CONSULTATION Preoperative medical evaluation prior to right total knee arthroplasty scheduled by Dr. Samson for 06/22/2017. HISTORY OF PRESENT ILLNESS The patient is an 86-year-old male, who presents to preprocedural screening for the reasons indicated above. Other than complaints of bilateral knee aching continuously, he has no other complaints at this time. He has a history of left hip MRSA infection and is status post removal of an infected gamma nail neck and head fragment from the left hip with placement of an antibiotic spacer on 03/21/2017. The patient states he completed several weeks of Cubicin. His PICC line has been discontinued. He has no fever, chills, and erythema at the incision site. He has no upper chest, upper back, arm, neck, jaw pain or pressure. Minimum shortness of air with activity. No lightheadedness or dizziness. No palpitations. Per the patient's report, the antibiotic spacer in the left hip has fused and there are no plans for additional left hip procedures. The patient states he is weightbearing as tolerated on the left lower extremity with the use of a rolling walker to assist with ambulation. He has been evaluated by Dr. Samson and scheduled for the above-referenced procedure. PAST MEDICAL HISTORY 1. Osteoarthritis. 2. Left hip MRSA infection, status post removal of an infected gamma nail in neck and head fragment with placement of antibiotic spacer on 03/21/2017, status post completion of several weeks of Cubicin antibiotic. 3. Hypertension. 4. Anemia. 5. Chronic kidney disease, stage III, established with Dr. Villasenor. The patient tolerated his previous two hip surgeries well with creatinine baseline approximately 1.2 to 1.5. 6. Restless legs syndrome. 7. Degenerative joint disease. 8. History of remote tobacco use. He quit in the 1970s. 9. Hyperlipidemia. 10. GERD. 11. Emphysema. 12. Health maintenance; the patient was seen by his dentist and a letter of dental clearance has been sent by mail to Dr. Samson's office. PAST SURGICAL HISTORY 1. Left hip fracture and repair. 2. Prostate biopsy years ago. Unit #: [id number] #: [id number] Patient: ERNESTINE BECERRIL 3. Left hip hematoma, status post I and D of 2015. 4. Left hip hardware removed and placement of antibiotic spacer, 03/22/2017. 5. Please note, this patient denies a personal and family history of complications to anesthesia. ALLERGIES Denies latex allergy. No known medication allergies. CURRENT MEDICATIONS Hydrochlorothiazide 12.5 mg p.o. daily, ferrous gluconate 324 mg p.o. daily, aspirin 81 mg p.o. daily, vitamin B12 1000 mcg p.o. daily. SOCIAL HISTORY Former smoker. Denies EtOH and illicit drug use. FAMILY HISTORY Both parents at the age of 93. No family history of coronary artery disease per review of the history and physical report of 06/2016. REVIEW OF SYSTEMS The patient reports abdominal cramping with minimal diarrhea yesterday, which completely resolved. He denies fever or chills. A 10-point review of systems is otherwise conducted and negative except as indicated under history of present illness above. PHYSICAL EXAMINATION GENERAL: An 86-year-old male, awake, alert, in no acute distress. VITAL SIGNS: Temperature 97.0, heart rate 80, respiratory rate 18, blood pressure 144/87, oxygen saturation 97% on room air. HEENT: Atraumatic and normocephalic. Sclerae anicteric. No discharge from eyes, ears, or nares. LYMPH: No preauricular, postauricular, tonsillar, submental, anterior or posterior cervical adenopathy. ENDOCRINE: No thyromegaly, thyroid nodules, or tenderness. RESPIRATORY: Clear to auscultation in all bashir bilaterally without wheezes, rhonchi, or rales. CARDIOVASCULAR: S1, S2. Regular rate and rhythm without murmur or rub. GI: Bowel sounds are positive x4. Soft, nontender, nondistended. EXTREMITIES: No edema, cyanosis or clubbing. MUSCULOSKELETAL: Strength 5/5 in all extremities bilaterally to flexion and extension without tenderness or obvious atrophy. NEUROLOGIC: Alert and oriented x3. Speech clear. Cranial nerves II through XII are grossly intact. Follows directions during examination. DIAGNOSTIC STUDIES LABORATORY RESULTS: WBC 7.4, hemoglobin 12.3, hematocrit 36.9, platelet count 262,000. Sodium 140, potassium 4.0, chloride 103, CO2 of 30, glucose 93, BUN 32, creatinine 1.3, calcium 9.1, AST 14, ALT 10, alkaline phos 94, bilirubin total 0.9, total protein 6.9, and albumin 4.1. Urinalysis, negative with neither microscopic nor culture indicated. PT 10.8, INR 1.0. Blood type O negative, antibody screen negative. MRSA nasal swab report pending at this time. IMAGING STUDIES: Two-view chest x-ray report, date of study 03/16/2017, impression, no acute finding, emphysema. Unit #: [id number] #: [id number] Patient: ERNESTINE BECERRIL Cardiology; 03/17/2017, normal sinus rhythm, left axis deviation, low-voltage QRS, inferior infarct cited on or before 06/09/2016; abnormal ECG when compared with ECG of 16/03/2017; no significant change was found. IMPRESSION 1. The patient is an 86-year-old male, who presents to preprocedural screening for preoperative medical evaluation prior to right total knee arthroplasty as scheduled by Dr. Samson. The patient's Logan revised cardiac risk index is equal to 1.0 to 1.3% and represents the patient's rate of fatal or nonfatal myocardial infarction, cardiopulmonary arrest, arrhythmia and/or pulmonary edema based on the risk factor of chronic kidney disease. The patient has been evaluated by Dr. Villasenor, his chain maker loom control and has been given preoperative clearance for surgery. Per Dr. Villasenor's recommendation based on review of an addendum to the office note dated 06/01/2017 will hold any LYLY inhibitor and thiazide diuretics prior to surgery. The patient does not take NSAIDs at this time. We will monitor blood pressure and restart the patient's diuretic based on his renal function perioperatively. I will add a repeat BMP and mag for the a.m. of OR. 2. History of methicillin-resistant Staphylococcus aureus infection of the left hip, status post removal infected gamma nail in neck and head fragment with placement of antibiotic spacer on 03/21/2017. The patient will likely be placed in contact precautions. 3. Hypertension, blood pressure is stable. We will hold hydrochlorothiazide preoperatively, monitor blood pressure and resume based on patient's renal function postoperatively. 4. History of anemia, patient's H and H are stable at this time. We will monitor H and H postoperatively. 5. Chronic kidney disease, 3. Please refer to #1 above. 6. Restless legs syndrome. 7. Degenerative joint disease. 8. Remote history of tobacco use. 9. Hyperlipidemia. The patient tells me he no longer takes a statin medication for this. 10. Gastroesophageal reflux disease. 11. Emphysema, the patient is stable today. We will monitor her pulmonary function and add inhaled bronchodilators and mucolytics postoperatively if indicated. 12. Health maintenance; the patient's dentist just sent a letter of dental clearance via mail to Dr. Samson's office. Thank you for allowing us to participate in the care of this patient. We will gladly follow him for postop medical management pending order of Dr. Samson. Dictated by... Dede Harrison A.P.R.N. for Carin Alfaro/jonathon TD: 06/08/2017 06:20 JOB #: [id number] Unit #: [id number] #: [id number] Patient: ERNESTINE BECERRIL CONSULTATION REPORT Page 1 of 1 X Dede Harrison APRN X CONSULTATION REPORT
[2017-06-07 11:12] LABS: HEMATOCRIT 36.9 % (38.0-50.0); HEMOGLOBIN 12.3 gm/dL (13.0-16.0); MEAN CELL VOLUME 90.8 FL (83-96); MEAN CORPUSCULAR HEMOGLOBIN 30.2 PG (28-34); MEAN CORPUSCULAR HGB CONC 33.3 g/dL (30-36); MEAN PLATELET VOLUME 6.8 FL (6.5-11.5); RED BLOOD COUNT 4.07 X10e (3.90-5.60); RED CELL DISTRIBUTION WIDTH 14.5 % (11.0-15.5); WHITE BLOOD COUNT 7.4 X10e3 (4.0-10.5)
[2017-06-07 11:19] LABS: PROTHROMBIN TIME (PATIENT) 10.8 SECONDS (10.0-11.7)
[2017-06-07 12:21] LABS: ALBUMIN SERUM 4.1 g/dL (3.5-5.0); BILIRUBIN,TOTAL 0.9 mg/dL (0.2-2.0); BUN/CREATININE RATIO 24.61; CALCIUM SERUM 9.1 mg/dL (8.4-10.2); CREATININE SERUM 1.3 mg/dL (0.6-1.4); GLOM FILT RATE Estimated 50.1 mL/min (>60); PROTEIN TOTAL SERUM 6.9 g/dL (6.0-8.3)
[2017-06-07 12:23] LABS: URINE APPEARANCE CLEAR; URINE BILIRUBIN NEG (NEG); URINE BLOOD NEG (NEG); URINE COLOR YELLOW; URINE GLUCOSE NEG (NEG); URINE KETONE NEG (NEG); URINE LEUKOCYTE ESTERASE NEG (NEG); URINE NITRATE NEG (NEG); URINE PH 5.5 (5-8); URINE PROTEIN NEG (NEG); URINE SPECIFIC GRAVITY 1.018 (1.003-1.035); URINE UROBILINOGEN 0.2 MG/DL (NEG)
[2017-06-07 12:24] LABS: CULTURE INDICATED? NO; URINE SOURCE CLEAN CATCH
== END | disposition home or self-care (01) ==
LOC: CAMB 10:29
PROVIDERS: Orthopaedic Surgery
DX: Z01.812 Encounter for preprocedural laboratory examination (principal); M17.11 Unilateral primary osteoarthritis, right knee
CPT/HCPCS: 36415; 80053; 81003; 85027; 85610; 86850; 86900; 86901; 87070